=== PATIENT | male | born 1970 | race Two or more races ===

== ENCOUNTER 2021-08-30 22:43 | Emergency (ER) | payer OTHER ==
[~2021-08-30] VITALS: Ht 177.8 cm; Wt 84.5 kg
[2021-08-30] MEDS ORDERED: KETOROLAC TROMETHAMINE 60 MG/2 ML VIAL IM ONE (23:00)
[2021-08-30] MEDS ORDERED: MORPHINE SULFATE 4 MG/ML SYRINGE IM ONE (23:00)
[2021-08-30] MEDS ORDERED: HYDROCODONE/ACETAMINOPHEN 5-325 MG TABLET PO ONE (23:00)
[2021-08-30] MEDS ORDERED: ONDANSETRON HCL 4 MG/2 ML VIAL IM ONE (23:00)
[2021-08-30] MEDS ORDERED: IBUP-1554 PO (23:35)
[2021-08-30] MEDS ORDERED: HYDR-4723 PO (23:35)
[2021-08-31 00:12] VITALS: BP 129/74
== END 2021-08-31 00:18 | disposition home or self-care (01) ==
LOC: EMS 22:46
DX: S93.402A Sprain of unspecified ligament of left ankle, initial encounter (principal); W18.30XA Fall on same level, unspecified, initial encounter; Y93.89 Activity, other specified; Y92.89 Other specified places as the place of occurrence of the external cause; Y99.8 Other external cause status
CPT/HCPCS: 29515; 73610; 96372; 99284; J1885; J2270; J2405; 29540